=== PATIENT | female | born 1990 | race Caucasian/White ===

== ENCOUNTER 2023-03-22 18:50 | Emergency (ER) | payer OTHER ==
[2023-03-22 18:58] VITALS: BP 115/56; PULSE 82; RESP 18; TEMP 99; BMI 31.1
== END 2023-03-22 21:19 | disposition home or self-care (01) ==
LOC: JERFT 18:50
DX: R05.1 Acute cough (principal); J06.9 Acute upper respiratory infection, unspecified; Z20.822 Contact with and (suspected) exposure to COVID-19
CPT/HCPCS: 0241U-QW; 71046-TC-FY; 87651; 93005; 93010; 99283-25